=== PATIENT | male | born 2000 | race Caucasian/White ===

== ENCOUNTER 2021-05-20 17:02 | Inpatient (IN) | payer BC ==
[2021-05-20 19:03] LABS: Basophils % (A) 0 %; Eosinophils % (A) 0 %; HCT 44.6 % (39.0-53.0); HGB 16.1 gm/dL (13.0-17.5); Hyperchromasia Slight; Lymphocytes # (A) 0.5 k/uL (1.0-4.8); Lymphocytes % (A) 5 %; MCH 31.1 pg (25.0-35.0); MCHC 36.1 g/dL (31.0-37.0); MCV 86.3 fL (80.0-100.0); Mean Platelet Volume 7.5; Monocytes # (A) 0.6 k/uL (0-1.0); Monocytes % (A) 7 %; Neutrophils % (A) 87 %; Platelet Count 245 k/uL (150-450); RBC 5.16 m/uL (4.30-5.90); RDW 12.1 % (11.5-15.5); WBC 9.2 k/uL (3.8-10.6)
[2021-05-20 19:19] LABS: ALT 21 U/L (4-49); AST 29 U/L (17-59); African American GFR (CKD) >90 (>60 ml/min/1.73 sqM); Albumin 5.2 g/dL (3.5-5.0); Alkaline Phosphatase 59 U/L (38-126); Amylase 51 U/L (30-110); Anion Gap 13 mmol/L; Blood Urea Nitrogen 9 mg/dL (9-20); Calcium 9.4 mg/dL (8.4-10.2); Carbon Dioxide 25 mmol/L (22-30); Chloride 83 mmol/L (98-107); Glucose 122 mg/dL (74-99); Lipase 59 U/L (23-300); Non-African American GFR(CKD) >90 (>60 ml/min/1.73 sqM); Sodium 121 mmol/L (137-145); Total Bilirubin 2.3 mg/dL (0.2-1.3); Total Protein 7.9 g/dL (6.3-8.2)
--- NOTE | 2021-05-20 19:38 | XR ---
EXAMINATION TYPE: XR KUB DATE OF EXAM: 05/20/2021 6:46 PM INDICATION: Patient age:Male; 20 years old; Reason for study: pain; COMPARISON: None. TECHNIQUE: One radiographic view of the abdomen was obtained. FINDINGS: The bowel gas pattern is nonspecific without dilated loops of small or large bowel. The os seous structures are intact. No abnormal calcifications are present. Fecal material and gas are demo nstrated throughout the colon and rectum. IMPRESSION: Nonspecific bowel gas pattern without radiographic evidence for acute process.
[2021-05-20] MEDS ORDERED: ONDANSETRON 4 MG/2 ML VIAL IVP STA (21:31)
[2021-05-20] MEDS ORDERED: SODIUM CHLORIDE 0.9% 2,000 ML IV ONE (21:31)
[2021-05-20] MEDS ORDERED: FAMOTIDINE 20 MG/2 ML VIAL IV STA (21:31)
--- NOTE | 2021-05-20 21:34 | ED ---
Nausea/Vomiting/Diarrhea HPI - General Chief complaint: Nausea/Vomiting/Diarrhea Stated complaint: V&D Time Seen by Provider: 05/20/21 21:12 Source: patient, RN notes reviewed Mode of arrival: ambulatory Limitations: no limitations - History of Present Illness Initial comments: This is a pleasant 20-year-old male who presents emergency department with nausea and vomiting since yesterday. Patient's also had diarrhea. No melena or hematochezia. No coffee-ground emesis or hematemesis. Patient has had bilious vomiting. Patient states she has had an upset stomach describing a nausea type feeling. He denies any definitive pain. No fever or chills. No ill contacts. No recent travel. No headache, no fever or chills, no changes in vision or hearing, no sore throat or difficulty with speech, no neck pain, no chest pain or shortness of breath, no changes in urination or bowel movements, no numbness or tingling, no extrem ity pain, no skin rashes or lesions. - Related Data Home Medications Medication Instructions Recorded Confirmed No Known Home Medications 05/20/21 05/20/21 Allergies Allergy/AdvReac Type Severity Reaction Status Date / Time No Known Allergies Allergy Verified 05/20/21 21:43 Review of Systems ROS Statement: Those systems with pertinent positive or pertinent negative responses have been documented in the HPI. ROS Other: All systems not noted in ROS Statement are negative. Past Medical History Past Medical History: No Reported History History of Any Multi-Drug Resistant Organisms: None Reported, MRSA Date of last positivie culture/infection: 2017 MDRO Source:: buttocks Past Surgical History: No Surgical Hx Reported Past Psychological History: No Psychological Hx Reported Smoking Status: Never smoker Past Alcohol Use History: None Reported Past Drug Use History: None Reported General Exam - General Exam Comments Initial Comments: Patient appears to be ill but not toxic. Somewhat dehydrated with mildly dry mucous membranes. Cranial nerves II through XII grossly intact Limitations: no limitations General appearance: in distress Head exam: Present: atraumatic, normocephalic, normal inspection Eye exam: Present: normal appearance, PERRL, EOMI. Absent: scleral icterus, conjunctival injection, periorbital swelling ENT exam: Present: normal exam, mucous membranes dry Neck exam: Present: normal inspection, full ROM. Absent: tenderness, meningismus, lymphadenopathy Respiratory exam: Present: normal lung sounds bilaterally. Absent: respiratory distress, wheezes, rales, rhonchi, stridor Cardiovascular Exam: Present: regular rate, normal rhythm, normal heart sounds. Absent: systolic murmur, diastolic murmur, rubs, gallop, clicks GI/Abdominal exam: Present: soft, hyperactive bowel sounds. Absent: distended, tenderness, guarding, rebound, rigid, normal bowel sounds, diminished bowel sounds, hypoactive bowel sounds, organomegaly, mass, bruit, pulsatile mass, hernia Extremities exam: Present: normal inspection, full ROM, normal capillary refill. Absent: tenderness, pedal edema, joint swelling, calf tenderness Back exam: Present: normal inspection Neurological exam: Present: alert, oriented X3, CN II-XII intact Psychiatric exam: Present: normal affect, normal mood Skin exam: Present: warm, dry, intact, normal color. Absent: rash Course Vital Signs 05/20/21 18:07 Temperature 98.2 F Pulse Rate 81 Respiratory 16 Rate Blood Pressure 124/75 O2 Sat by Pulse 100 Oximetry - Reevaluation(s) Reevaluation #1: 05/20/21 23:44 Medical record is reviewed Symptoms are improved --however, patient's CMP came back with a sodium of 121. I halted the IV fluids. Patient did get 1700 mL of normal saline. Patient was neurologically intact. , States he is feeling a bit better. Patient is informed of results and questions answered Patient in no distress Reevaluation #2: 05/21/21 00:05 Case discussed with ED attending physician as well as the admitting physician, Dr. Appiah. Plan discussed, interventions distress Medical Decision Making - Medical Decision Making Diagnosis: Viral gastroenteritis, food borne illness, less likely be other infl ammatory etiology such as inflammatory bowel disease, patient has no definitive pain or significant tenderness. Unlikely to be appendicitis or biliary related. However he does have an elevated bilirubin at 2.3. We'll obtain an ultrasound. Hydration, probable discharge The case was discussed in detail with ED attending physician. Presentation, findings, treatment plan discussed in detail. Case discussed in detail with Dr. Appiah who agrees to admit the patient for observation and reevaluation. Repeat sodium was ordered. We'll start the patient on 75 mL per hour for now. The case was discussed in detail with ED attending physician. Presentation, findings, treatment plan discussed in detail. - Lab Data Result diagrams: 05/20/21 18:50 05/21/21 00:08 Lab Results 05/20/21 05/20/21 05/20/21 Range/Units 18:50 18:50 18:50 WBC 9.2 (3.8-10.6) k/uL RBC 5.16 (4.30-5.90) m/uL Hgb 16.1 (13.0-17.5) gm/dL Hct 44.6 (39.0-53.0) % MCV 86.3 (80.0-100.0) fL MCH 31.1 (25.0-35.0) pg MCHC 36.1 (31.0-37.0) g/dL RDW 12.1 (11.5-15.5) % Plt Count 245 (150-450) k/uL MPV 7.5 Neutrophils % 87 % Lymphocytes % 5 % Monocytes % 7 % Eosinophils % 0 % Basophils % 0 % Neutrophils # 8.0 H (1.3-7.7) k/uL Lymphocytes # 0.5 L (1.0-4.8) k/uL Monocytes # 0.6 (0-1.0) k/uL Eosinophils # 0.0 (0-0.7) k/uL Basophils # 0.0 (0-0.2) k/uL Hyperchromasia Slight Sodium 121 L (137-145) mmol/L Potassium 4.0 (3.5-5.1) mmol/L Chloride 83 L (98-107) mmol/L Carbon Dioxide 25 (22-30) mmol/L Anion Gap 13 mmol/L BUN 9 (9-20) mg/dL Creatinine 0.64 L (0.66-1.25) mg/dL Est GFR (CKD-EPI)AfAm >90 (>60 ml/min/1.73 sqM) Est GFR (CKD-EPI)NonAf >90 (>60 ml/min/1.73 sqM) Glucose 122 H (74-99) mg/dL Calcium 9.4 (8.4-10.2) mg/dL Total Bilirubin 2.3 H (0.2-1.3) mg/dL AST 29 (17-59) U/L ALT 21 (4-49) U/L Alkaline Phosphatase 59 (38-126) U/L Total Protein 7.9 (6.3-8.2) g/dL Albumin 5.2 H (3.5-5.0) g/dL Amylase 51 (30-110) U/L Lipase 59 (23-300) U/L Urine Color Yellow Urine Appearance Clear (Clear) Urine pH 6.5 (5.0-8.0) Ur Specific Berger 1.011 (1.001-1.035) Urine Protein Negative (Negative) Urine Glucose (UA) Negative (Negative) Urine Ketones 2+ H (Negative) Urine Blood Negative (Negative) Urine Nitrite Negative (Negative) Urine Bilirubin Negative (Negative) Urine Urobilinogen <2.0 (<2.0) mg/dL Ur Leukocyte Esterase Negative (Negative) Coronavirus (PCR) (Not Detectd) 05/20/21 05/21/21 Range/Units 22:32 00:08 WBC (3.8-10.6) k/uL RBC (4.30-5.90) m/uL Hgb (13.0-17.5) gm/dL Hct (39.0-53.0) % MCV (80.0-100.0) fL MCH (25.0-35.0) pg MCHC (31.0-37.0) g/dL RDW (11.5-15.5) % Plt Count (150-450) k/uL MPV Neutrophils % % Lymphocytes % % Monocytes % % Eosinophils % % Basophils % % Neutrophils # (1.3-7.7) k/uL Lymphocytes # (1.0-4.8) k/uL Monocytes # (0-1.0) k/uL Eosinophils # (0-0.7) k/uL Basophils # (0-0.2) k/uL Hyperchromasia Sodium 124 L (137-145) mmol/L Potassium (3.5-5.1) mmol/L Chloride (98-107) mmol/L Carbon Dioxide (22-30) mmol/L Anion Gap mmol/L BUN (9-20) mg/dL Creatinine (0.66-1.25) mg/dL Est GFR (CKD-EPI)AfAm (>60 ml/min/1.73 sqM) Est GFR (CKD-EPI)NonAf (>60 ml/min/1.73 sqM) Glucose (74-99) mg/dL Calcium (8.4-10.2) mg/dL Total Bilirubin (0.2-1.3) mg/dL AST (17-59) U/L ALT (4-49) U/L Alkaline Phosphatase (38-126) U/L Total Protein (6.3-8.2) g/dL Albumin (3.5-5.0) g/dL Amylase (30-110) U/L Lipase (23-300) U/L Urine Color Urine Appearance (Clear) Urine pH (5.0-8.0) Ur Specific Berger (1.001-1.035) Urine Protein (Negative) Urine Glucose (UA) (Negative) Urine Ketones (Negative) Urine Blood (Negative) Urine Nitrite (Negative) Urine Bilirubin (Negative) Urine Urobilinogen (<2.0) mg/dL Ur Leukocyte Esterase (Negative) Coronavirus (PCR) Not Detected (Not Detectd) Critical Care Time Critical Care Time: Yes (Multiple re-evaluations, evaluation and diagnostics. Discussion with the a) Total Critical Care Time: 30 Disposition Clinical Impression: Hyponatremia, Dehydration, Nausea vomiting and diarrhea Disposition: ADMITTED IP TO THIS [facility] Condition: Fair Time of Disposition: 23:39
[2021-05-20 22:11] LABS: Appearance,Urine Clear (Clear); Bilirubin,Urine Negative (Negative); Blood,Urine Negative (Negative); Color,Urine Yellow; Glucose,Urine (UA) Negative (Negative); Ketones,Urine 2+ (Negative); Leukocyte Esterase,Urine Negative (Negative); Nitrite,Urine Negative (Negative); PH, Urine 6.5 (5.0-8.0); Protein,Urine Negative (Negative); Specific Gravity,Urine 1.011 (1.001-1.035); Urobilinogen,Urine <2.0 mg/dL (<2.0)
--- NOTE | 2021-05-20 22:30 | US ---
EXAMINATION TYPE: US gallbladder DATE OF EXAM: 05/20/2021 COMPARISON: NONE CLINICAL HISTORY: Abdominal pain, nausea, vomiting. Patient presents with nausea, vomiting, abdominal pain, and diarrhea. EXAM MEASUREMENTS: Liver Length: 12.9 cm Gallbladder Wall: 0.18 cm CBD: 0.27 cm Right Kidney: 11.6 x 4.1 x 6.0 cm Pancreas: Appears wnl Liver: wnl Gallbladder: wnl Evidence for sonographic Moseley's sign: No CBD: Appears wnl Right Kidney: wnl Stomach is seen and noticeably distended IMPRESSION: No gallstones or dilated ducts.
[2021-05-20] MEDS ORDERED: ACETAMINOPHEN TAB 500 MG TAB PO STA (23:37)
[2021-05-21] MEDS ORDERED: NALOXONE 0.4 MG/ML 1 ML VIAL IV PRN (00:02)
[2021-05-21] MEDS ORDERED: ONDANSETRON 4 MG/2 ML VIAL IVP PRN (00:02)
[2021-05-21] MEDS: SODIUM CHLORIDE 0.9% 1,000 ML IV SCH ×3 (01:22→20:52)
[2021-05-21] MEDS: ACETAMINOPHEN TAB 325 MG TAB PO PRN ×2 (05:29→17:08)
--- NOTE | 2021-05-21 11:15 | P.HPIM ---
History of Present Illness H&P Date: 05/21/21 Chief Complaint: Nausea ,vomiting and diarrhea 20-year-old gentleman who presented with nausea vomiting and diarrhea 35 hours with accompanying headache, abdominal tenderness secondary to multiple episodes of throwing up. Patient reports he is a vegetarian 9 months, then on Thursday consumed a large hamburger with symptoms initiating on Thursday midday. Patient also reports he consumed cannabis gummies over the last week. Denies hematemesis , coffee-ground emesis , hematochezia or melena .Sodium on admission 121. BUN 9, creatinine 0.64. T bili 2.3. Hemoglobin 16.1, platelets 245 . UA 2+ ketones. Coronavirus not detected. Afebrile, normal WBC. Received IV fluid resuscitation and currently on IV fluid hydration. Repeat labs pending. Review of Systems ROS Statement: Those systems with pertinent positive or pertinent negative responses have been documented in the HPI. ROS Other: All systems not noted in ROS Statement are negative. Past Medical History Past Medical History: No Reported History History of Any Multi-Drug Resistant Organisms: None Reported, MRSA Date of last positivie culture/infection: 2017 MDRO Source:: buttocks Past Surgical History: No Surgical Hx Reported Past Anesthesia/Blood Transfusion Reactions: No Reported Reaction Past Psychological History: No Psychological Hx Reported Smoking Status: Never smoker Past Alcohol Use History: None Reported Past Drug Use History: None Reported Medications and Allergies Home Medications Medication Instructions Recorded Confirmed Type No Known Home Medications 05/20/21 05/20/21 History Allergies Allergy/AdvReac Type Severity Reaction Status Date / Time Penicillins Allergy Itching Verified 05/21/21 06:47 Physical Exam Vitals: Vital Signs Temp Pulse Pulse Resp BP BP Pulse Ox 05/21/21 08:00 98.0 F 74 17 136/72 99 05/21/21 01:35 98.0 F 66 14 120/57 100 05/20/21 18:07 98.2 F 81 16 124/75 100 Intake and Output 05/20/21 05/21/21 05/21/21 22:59 06:59 14:59 Other: # Ritaeses 1 Weight 79.379 kg 79.379 kg PHYSICAL EXAM: VITAL SIGNS: As above GENERAL: Lying on couch, no acute distress. HEENT: Conjunctivae normal. eyes normal. NECK: Supple, No JVD. No thyroid enlargement. No LNs CARDIOVASCULAR: S1, S2 regular. No murmur. RESPIRATION: Breath sounds diminished in the bases. No rhonchi or crackles. No bronchial breathing. ABDOMEN: Soft, nondistended, nontender . No guarding. no masses palpable. No ascites, No hepatosplenomegaly.Bowel sounds heard. LEGS: No edema. no swelling. PSYCHIATRY: Alert and oriented X3, mood and affect normal. NERVOUS SYSTEM: Cranial N 2-12 grossly normal. Moves all 4 limbs. No focal deficits. Strength and sensation grossly intact. Skin: Warm and dry, no rash. Results CBC & Chem 7: 05/20/21 18:50 05/21/21 00:08 Labs: Abnormal Lab Results - Last 24 Hours (Table) 05/20/21 05/20/21 05/20/21 Range/Units 18:50 18:50 18:50 Neutrophils # 8.0 H (1.3-7.7) k/uL Lymphocytes # 0.5 L (1.0-4.8) k/uL Sodium 121 L (137-145) mmol/L Chloride 83 L (98-107) mmol/L Creatinine 0.64 L (0.66-1.25) mg/dL Glucose 122 H (74-99) mg/dL Total Bilirubin 2.3 H (0.2-1.3) mg/dL Albumin 5.2 H (3.5-5.0) g/dL Urine Ketones 2+ H (Negative) 05/21/21 Range/Units 00:08 Neutrophils # (1.3-7.7) k/uL Lymphocytes # (1.0-4.8) k/uL Sodium 124 L (137-145) mmol/L Chloride (98-107) mmol/L Creatinine (0.66-1.25) mg/dL Glucose (74-99) mg/dL Total Bilirubin (0.2-1.3) mg/dL Albumin (3.5-5.0) g/dL Urine Ketones (Negative) Thrombosis Risk Factor Assmnt - Choose All That Apply Any of the Below Risk Factors Present?: No Other Risk Factors: No Other congenital or acquired thrombophilia - If yes, enter type in comment: No Thrombosis Risk Factor Assessment Level: Very Low Risk Assessment and Plan Assessment: Nausea and vomiting diarrhea, possible cannaboid hyperemesis Hypovolemic hyponatremia, secondary to the above Cannabis use Hyperbilirubinemia Plan: Continue on current medication regime ,monitoring and symptomatic treatment. Increase IV fluids 150 MLS per hour. Repeat labs ordered/pending. Neuro assessments every shift.Seizure precautions initiated. Nephrology consulted regarding significant hyponatremia. Close monitoring of electrolytes, renal function and Lfts. Repeat CMP tomorrow The impression and plan of care has been dictated as directed. : I performed a history and examination of this patient, discussed the same with the dictator. I agree with the dictator's note ,documented as a scribe. Any additional findings or plans will be noted.
[2021-05-21 11:49] LABS: ALT 17 U/L (4-49); AST 26 U/L (17-59); African American GFR (CKD) >90 (>60 ml/min/1.73 sqM); Albumin 4.3 g/dL (3.5-5.0); Albumin/Globulin Ratio 1.9; Alkaline Phosphatase 52 U/L (38-126); Anion Gap 7 mmol/L; Blood Urea Nitrogen 11 mg/dL (9-20); Calcium 8.6 mg/dL (8.4-10.2); Carbon Dioxide 26 mmol/L (22-30); Chloride 98 mmol/L (98-107); Globulin 2.3 g/dL; Glucose 102 mg/dL (74-99); Non-African American GFR(CKD) >90 (>60 ml/min/1.73 sqM); Potassium 4.1 mmol/L (3.5-5.1); Sodium 131 mmol/L (137-145); Total Bilirubin 1.5 mg/dL (0.2-1.3); Total Protein 6.6 g/dL (6.3-8.2)
[2021-05-21] MEDS: ONDANSETRON 4 MG/2 ML VIAL IVP PRN (13:44)
--- NOTE | 2021-05-21 16:22 | CONS ---
CONSULTATION REASON FOR CONSULT: Hyponatremia. HISTORY OF PRESENT ILLNESS: Patient is a 20-year-old male who was admitted to the hospital with complaints of severe nausea and vomiting which started about 1-1/2 days prior to admission. Patient stated that he had been a vegetarian and recently consumed multiple fish sticks as well as hamburger from a fast food chain. He has also been using cannabis gummies over the last one week. Currently maintained on normal saline. Serum sodium was 121 on admission. It improved to 124 and today it is 131. Patient continues to have nausea and vomiting, although his diarrhea has improved. PAST MEDICAL HISTORY: Previous episode of nausea and vomiting. No other chronic diseases. PAST SURGICAL HISTORY: None. SOCIAL HISTORY: Negative for smoking, drug abuse or alcohol abuse. MEDICATIONS PRIOR TO ADMISSION: None. ALLERGIES: ALLERGIES INCLUDE PENICILLIN, which causes itching. REVIEW OF SYSTEMS: As per HPI. Other systems negative. PHYSICAL EXAMINATION: Patient is comfortable, awake, not in any acute distress. Blood pressure 136/72, heart rate 74 per minute. Patient is afebrile. Examination of the heart: S1, S2. Examination of the lungs: Bilateral breath sounds are heard. Abdomen is soft, nontender. Examination of lower extremities shows no significant edema. 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 LABS: Sodium 131, potassium 4.1, chloride 98, BUN 11, serum creatinine 0.75. ASSESSMENT: 1. Hypovolemic hyponatremia secondary to nausea and vomiting, and currently improved with saline administration. 2. Gastroenteritis, possibly related to recent consumption of cannabinoid. 3. Volume depletion, currently maintained on IV fluids. PLAN: Continue with saline. Patient is advised to discontinue the use of cannabinoid gummies and increase oral intake as tolerated. MMODL / IJN: [id number] /
[2021-05-21 21:44] VITALS: RESP 16
[2021-05-22] MEDS: ONDANSETRON 4 MG/2 ML VIAL IVP PRN ×2 (02:11→08:33)
[2021-05-22] MEDS: SODIUM CHLORIDE 0.9% 1,000 ML IV SCH ×2 (04:56→07:49)
[2021-05-22 08:54] LABS: Basophils # (A) 0.04 X 10*3/uL (0.00-0.10); Basophils % (A) 0.8 %; Eosinophils # (A) 0.01 X 10*3/uL (0.04-0.35); Eosinophils % (A) 0.2 %; HCT 37.8 % (39.6-50.0); HGB 13.3 g/dL (13.0-17.0); Immature Grans, Automated 0.2 %; Lymphocytes # (A) 0.72 X 10*3/uL (0.90-5.00); Lymphocytes % (A) 14.2 %; MCHC 35.2 g/dL (32.0-37.0); MCV 85.3 fL (80.0-97.0); Monocytes # (A) 0.82 X 10*3/uL (0.20-1.00); Monocytes % (A) 16.1 %; NRBC Per 100 WBC 0 /100 WBCS (0.0-0.0); Neutrophils # (A) 3.48 X 10*3/uL (1.80-7.70); Neutrophils % (A) 68.5 %; Platelet Count 217 X 10*3/uL (140-440); RBC 4.43 X 10*6/uL (4.40-5.60); RDW 11.8 % (11.5-14.5); WBC 5.08 X 10*3/uL (4.50-10.00)
[2021-05-22 08:57] LABS: Albumin 4.2 g/dL (3.8-4.9); Albumin/Globulin Ratio 2.63 (1.60-3.17); Anion Gap 8.1 mmol/L (10.00-18.00); BUN/Creat Ratio 7.88 Ratio (12.00-20.00); Blood Urea Nitrogen 6.3 mg/dL (9.0-27.0); Calcium 8.8 mg/dL (8.7-10.3); Carbon Dioxide 23.9 mmol/L (20.0-27.5); Globulin 1.6 g/dL (1.6-3.3); Non-African American GFR(CKD) 126.8 (60.0-200.0); Phosphorus 2.3 mg/dL (2.4-5.1); Total Bilirubin 1.1 mg/dL (0.30-1.20); Total Protein 5.8 g/dL (6.2-8.2)
[2021-05-22 09:18] VITALS: BP 122/77; PULSE 59; TEMP 98.7
--- NOTE | 2021-05-22 11:33 | P.DS ---
Providers Date of admission: 05/21/21 00:31 Expected date of discharge: 05/22/21 Attending physician: Zaheer Appiah Consults: 05/21/21 08:18 Consult Physician Routine Consulting Provider: Isi Price Consult Reason/Comments: hyponatremia Do you want consulting provider notified?: Yes Primary care physician: Zaheer Appiah [facility] Course: Final Diagnoses: Nausea and vomiting diarrhea, possible cannaboid hyperemesis , improved with IV fluid hydration Hypovolemic hyponatremia, secondary to the above, improved with IV fluid hydration Cannabis use Hyperbilirubinemia Hospital course: This is a 20-year-old gentleman who presented with nausea vomiting and diarrhea 35 hours with accompanying headache, abdominal tenderness secondary to multiple episodes of throwing up. Patient reports he is a vegetarian 9 months, then on Thursday consumed a large hamburger with symptoms initiating on Thursday. Patient also reports he consumed cannabis gummies over the last week. Denies hematemesis , coffee-ground emesis , hematochezia or melena .Sodium on admission 121. BUN 9, creatinine 0.64. T bili 2.3. Hemoglobin 16.1, platelets 245 . UA 2+ ketones. Coronavirus not detected. Afebrile, normal WBC. Received IV fluid resuscitation and currently on IV fluid hydration. Repeat labs pending. Significant clinical improvement, sodium 134, renal function stable, T bili normalized, nausea and vomiting improved. Patient yesterday was guzzling water with subsequent nausea and vomiting-reeducated. Cessation of consuming marijuana gummies as well as guzzling water, reinforced. Denies lightheadedness, dizziness or focal deficits. Denies shortness of breath. Patient will be discharged home today in a stable condition with guarded prognosis. The impression and plan of care has been dictated as directed. : I performed a history and examination of this patient, discussed the same with the dictator. I agree with the dictator's note ,documented as a scribe. Any additional findings or plans will be noted. Patient Condition at Discharge: Stable Plan - Discharge Summary Discharge Rx Participant: No New Discharge Prescriptions: No Action No Known Home Medications Discharge Medication List No Known Home Medications 05/20/21 [History] Follow up Appointment(s)/Referral(s): Zaheer Appiah DO [Primary Care Provider] - 05/28/21 2:00 pm Patient Instructions/Handouts: Seizure/Epilepsy Discharge Instructions & Follow-Up
--- NOTE | 2021-05-22 12:39 | P.PN ---
Subjective Patient is seen for follow-up for hyponatremia. This was mostly hypovolemic and improved with saline administration. Serum sodium is 134 today Vomiting has improved Objective - Vital Signs Vital signs: Vital Signs Temp 98.7 F 05/22/21 08:00 Pulse 59 L 05/22/21 08:00 Resp 16 05/22/21 08:00 BP 122/77 05/22/21 08:00 Pulse Ox 100 05/22/21 08:00 Intake & Output 05/21/21 05/22/21 05/22/21 18:59 06:59 18:59 Other: # Voids 4 3 # Bowel Movements 4 0 # Emeses 4 - Exam Patient is awake comfortable. He is euvolemic - Labs CBC & Chem 7: 05/22/21 05:32 05/22/21 05:32 Labs: Abnormal Lab Results - Last 24 Hours (Table) 05/22/21 05/22/21 Range/Units 05:32 05:32 Hct 37.8 L (39.6-50.0) % Lymphocytes # 0.72 L (0.90-5.00) X 10*3/uL Eosinophils # 0.01 L (0.04-0.35) X 10*3/uL Sodium 134 L (135-145) mmol/L Anion Gap 8.10 L (10.00-18.00) mmol/L BUN 6.3 L (9.0-27.0) mg/dL BUN/Creatinine Ratio 7.88 L (12.00-20.00) Ratio Glucose 112 H (70-110) mg/dL Phosphorus 2.3 L (2.4-5.1) mg/dL AST 13 L (14-35) U/L Total Protein 5.8 L (6.2-8.2) g/dL Assessment and Plan Assessment: 1. Hypovolemic hyponatremia, improved with normal saline 2. Nausea and vomiting currently improved 3. Volume depletion currently improved Plan: Continue to encourage increase oral intake. Patient is stable for discharge from nephrology standpoint
== END 2021-05-22 13:33 | disposition home or self-care (01) | DRG 392 ==
LOC: EC 17:02 → 4SSUR 05-21 00:31
PROVIDERS: ADMIT Family Medicine; ATTEND Family Medicine
DX: R11.10 Vomiting, unspecified (principal); E87.1 Hypo-osmolality and hyponatremia; R17 Unspecified jaundice; K52.1 Toxic gastroenteritis and colitis; T40.711A Poisoning by cannabis, accidental (unintentional), initial encounter; R11.0 Nausea; R11.2 Nausea with vomiting, unspecified; Z20.822 Contact with and (suspected) exposure to COVID-19; E86.0 Dehydration; E86.1 Hypovolemia; Z88.0 Allergy status to penicillin
CPT/HCPCS: 36415; 74018; 76705; 80053; 81003; 82150; 83690; 83735; 84100; 84295; 84300; 85025; 87635; 96361; 96374; 96375; 99285

== ENCOUNTER → 2022-02-26 | Outpatient (CLI) | payer BC ==
[2022-02-27 05:59] LABS: Aspergillus fumagatus IgE <0.10 kU/L; Cladosporian herbarum IgE 7.04 kU/L; Dermato. farinae IgE <0.10 kU/L; Dog Dander IgE 0.26 kU/L; Egg White IgE 0.81 kU/L
[2022-02-27 11:27] LABS: Peanut IgE 0.81 kU/L; Soybean IgE 0.49 kU/L
[2022-02-27 11:36] LABS: Cashew IgE <0.10 kU/L (<0.10); Cashew IgE Class CLASS 0
[2022-02-27 11:37] LABS: Barley IgE 3.35 kU/L (<0.10); Barley IgE Class CLASS 2; Beef IgE <0.10 kU/L (<0.10); Beef IgE Class CLASS 0; Oat IgE Class CLASS 2; Pea IgE (Grn) 1.02 kU/L (<0.10); Pea(Grn) IgE Class CLASS 2; Pistachio IgE Class CLASS 2
[2022-02-27 11:38] LABS: Alt. alternata IgE Class CLASS 0; Alternaria alternata IgE <0.10 kU/L (<0.10); Banana IgE Class CLASS 3
== END | disposition home or self-care (01) ==
LOC: LABWHC1 13:57
PROVIDERS: ATTEND Allergy & Immunology
DX: K21.9 Gastro-esophageal reflux disease without esophagitis (principal); L20.9 Atopic dermatitis, unspecified; J30.89 Other allergic rhinitis; R10.9 Unspecified abdominal pain
CPT/HCPCS: 36415; 86001; 86003